=== PATIENT | female | born 1935 | race Caucasian/White ===

== ENCOUNTER → 2016-08-05 | Outpatient (CLI) | payer OTHER, MEDICARE ==
--- NOTE | 2016-08-05 14:27 | MAMMOGRAPHY REPORT ---
BILATERAL DIGITAL SCREENING MAMMOGRAM WITH CAD: 08/05/2016 CLINICAL HISTORY: Routine screening. Patient has no complaints. TECHNIQUE: Bilateral CC and MLO views were obtained. Current study was also evaluated with a Comput er Aided Detection (CAD) system. COMPARISON: Comparison is made to exams dated: 07/06/2015 mammogram, 02/23/2013 mammogram, 07/05/2014 mammogram, 12/09/2011 mammogram, and 12/04/2010 mammogram - [facility]. BREAST COMPOSITION: There are scattered areas of fibroglandular density in both breasts. FINDINGS: There are moderate vascular calcifications in the breasts, and a benign rim calcification anteriorly within the right breast. No suspicious mass, architectural distortion or cluster of susp icious microcalcifications is seen. IMPRESSION: ACR BI-RADS CATEGORY 1: NEGATIVE There is no mammographic evidence of malignancy. A 1 year screening mammogram is recommended. The p atient will receive written notification of the results. Approximately 10% of breast cancers are not detected with mammography. A negative mammographic repor t should not delay biopsy if a clinically suggestive mass is present. Brittany Moore M.D. ay/:08/05/2016 13:51:56 [employer] Manager: Kath VIEIRA(Jocelin)(Maricruz), [facility] letter sent: Normal 1/2 BI-RADS Code: ACR BI-RADS Category 1: Negative
== END | disposition home or self-care (01) ==
LOC: C.MAMM 13:35
PROVIDERS: ATTEND Obstetrics & Gynecology
DX: Z12.31 Encounter for screening mammogram for malignant neoplasm of breast (principal)

== ENCOUNTER → 2017-07-28 | Outpatient (CLI) | payer OTHER, MEDICARE ==
--- NOTE | 2017-07-28 15:46 | DIAGNOSTIC IMAGING REPORT ---
R LOWER EXT JOINT WITHOUT CLINICAL HISTORY: 81 years-old Female presenting with KNEE PAIN, injury 7 years ago, diagnosed with torn meniscus, no history of surgery, now with new pain but no new injury, arthritis. TECHNIQUE: Multisequence, multiplanar MR imaging of the right knee was performed without the use of intravenous contrast. IV contrast: None. COMPARISON: Plain radiographs from 07/23/2017. FINDINGS: Localizer images: Unremarkable. Bone marrow: Cystic change in the intercondylar notch of the tibial plateau as well as at the medial aspect of the lateral femoral condyle, degenerative in etiology. No bony edema. Articular cartilage: Articular cartilage thinning in the mid weightbearing portion of the medial femoral condyle and medial tibial plateau. Articular cartilage thinning of the medial patellar and trochlear facets. Osteophytosis noted in the medial compartment. Menisci: Horizontal type tear of the posterior horn body junction of the medial meniscus, which extends to the mid to anterior body. There is slight extrusion of the body of the medial meniscus. Meniscocapsular ligaments are not grossly disrupted. Degenerative change of the lateral meniscus without focal tear. Cruciate ligaments: Slight increased signal intensity of the anterior cruciate ligament suggests mucoid degeneration. The anterior and posterior cruciate ligaments remain intact. Collateral ligament: Medial collateral ligament intact. Lateral collateral ligament complex including the biceps femoris tendon, fibular collateral ligament, popliteal tendon, and iliotibial band intact. Quadriceps and patellar tendons: Quadriceps and patellar tendons intact. Knee joint effusion: Small joint effusion. Large parameniscal cysts along the medial meniscus body. No popliteal cyst. Subcutaneous edema in the infrapatellar region. Muscle: Normal muscle bulk and muscle signal intensity. IMPRESSION: 1. Degenerative changes of the medial compartment with articular cartilage thinning and osteophytosis. 2. 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 Large parameniscal cysts. 3. Mucoid degeneration of the ACL. 4. Small knee joint effusion. Electronically signed by: Dc Jackson M.D. 07/28/2017 3:45 PM Dictated Date/Time: 07/28/2017 3:37 PM
== END | disposition home or self-care (01) ==
LOC: C.MRIBC 14:38
PROVIDERS: ATTEND Orthopaedic Surgery
DX: M25.561 Pain in right knee (principal); R93.7 Abnormal findings on diagnostic imaging of other parts of musculoskeletal system; M23.006 Cystic meniscus, unspecified meniscus, right knee

== ENCOUNTER 2017-09-21 22:12 | Emergency (ER) | payer OTHER, MEDICARE ==
[~2017-09-21] VITALS: Ht 154.9 cm; Wt 69.9 kg
[2017-09-21 22:18] VITALS: TEMP 36.6; Ht 154.9 cm; Wt 69.9 kg
[2017-09-21] MEDS ORDERED: CEPHALEXIN MONOHYDRATE 250 MG CAP PO ONE (22:30)
--- NOTE | 2017-09-21 22:36 | EMERGENCY ROOM VISIT NOTE ---
History Report prepared by Sal: Papa hWite Under the Supervision of: Dr. Pipe Rios M.D. First contact with patient: 22:21 Chief Complaint: LACERATION/CUT (NON-SUTURE) Stated Complaint: CUT R HAND History of Present Illness The patient is a 82 year old female who presents to the Emergency Room due to a recent cut to her right hand. Patient states she fell down 1 step in the dark and does not know what caused the laceration. Patient states that she takes a baby aspirin daily. Patient denies taking Coumadin or Plavix. Patient believes that she is up to date on her tetanus shot. Patient states that she does not have a history of easy bleeding or infections. Patient adds that she is not diabetic. Source of History: patient Onset: Recent Position: hand (right) Quality: other (Laceration) Timing: constant Modifying Factors (Relieving): other (None) Review of Systems See HPI for pertinent positives & negatives. A total of 6 systems reviewed and were otherwise negative. Past Medical & Surgical Surgical Problems: (1) Hx of cholecystectomy Family History Diabetes mellitus FHx: cancer FHx: heart disease Social History Smokeless Tobacco Use: No Alcohol Use: none Occupation Status: retired Current/Historical Medications Scheduled Alendronate/Cholecalciferol (Fosamax+D 70MG/2800 Iu), 1 TABLET PO WK Aspirin (Aspirin Ec), 81 MG PO DAILY Atenolol (Tenormin), 25 MG PO DAILY Cephalexin Monohydrate (Keflex), 500 MG PO QID Levothyroxine Sodium (Levothyroxine Sodium), 112 MCG PO DAILY Omeprazole (Prilosec), 20 MG PO DAILY Simvastatin (Zocor), 20 MG PO QPM Allergies Coded Allergies: No Known Allergies (Unverified , 09/21/17) Physical Exam Vital Signs Date Time Temp Pulse Resp B/P (MAP) Pulse Ox O2 Delivery O2 Flow Rate FiO2 09/21/17 23:50 58 20 156/60 96 09/21/17 22:18 36.6 64 20 154/75 98 Room Air Physical Exam GENERAL: Patient is well appearing and in no acute distress.\ RESPIRATORY: No dyspnea. Clear to auscultation and equal bilaterally. No wheeze , no rhonchi. CARDIOVASCULAR: Regular rate and rhythm. No murmurs, rubs, gallops appreciated. GASTROINTESTINAL: Abdomen soft, nontender, no peritonitis. Bowel sounds positive. No masses appreciated. LACERATION: 4cm deep laceration vertical over palmar aspect of hand extending between 3rd and 4th digits and extending towards heal of hand; laceration is deep to flexor tendon of 3rd digit with mild venous oozing and no evidence of tendon laceration. Medical Decision & Procedures ER Provider Diagnostic Interpretation: Radiology results and stated below per my review and radiologist interpretation: RIGHT HAND 3 VIEWS HISTORY: fall with hand laceration- palmar between 3rd/4th digits COMPARISON: None. FINDINGS: The bones are osteopenic. No fracture or dislocation. Soft tissue gas at the base of the third finger and between the third and fourth MCP joints. This is consistent with a soft tissue laceration. Soft tissue swelling at the second and third MCP joints. No radiopaque foreign bodies. IMPRESSION: Soft tissue laceration within the right hand as described above. No fractures. Electronically signed by: Josiah Low M.D. 09/21/2017 10:57 PM Medications Administered Medications (Trade) Dose Ordered Sig/Marva Route Start Time Stop Time Status Last Admin Dose Admin Cephalexin Monohydrate (Keflex Cap) 500 mg NOW ONCE PO 09/21/17 22:30 09/21/17 22:31 DC 09/21/17 22:42 500 MG Cephalexin Monohydrate (Keflex 500MG Home Pack) 1 homepack NOW ONCE PO 09/21/17 23:30 09/21/17 23:31 DC 09/21/17 23:42 1 HOMEPACK Procedure Location: Right hand Total length: 4cm Complexity: complex Verbal consent was obtained after the risks and benefits were explained, including but not limited to bleeding, scarring, infection, pain, and bone/joint /nerve damage. At this time, the risks of the procedure are less than the risks of NOT performing the procedure. A time out was taken and the correct patient and site identified. The skin was prepped with betadine. The target area was anesthetized with 5 ml of 1% lidocaine without epinephrine. Copious irrigation was performed using betadine and normal saline. The skin was re-prepped with betadine and a sterile field set. The wound was explored for foreign bodies and none found. Examination revealed no injury to deep structures such as tendons, bone, or significant blood vessels. Debridement was not performed. The wound edges were approximated using 3 deep, 4-0 Vicryl sutures and 15, 4-0 simple interrupted nylon sutures. Hemostasis and excellent approximation was achieved. Antibacterial ointment and a sterile dressing applied. Detailed wound care instructions and signs and symptoms of infection reviewed with the her. No complications and the patient tolerated the procedure well. ED Course 2021: The patient was evaluated in room A9. A complete history and physical exam was performed. 2347: Reevaluated the patient. Discussed results and discharge instructions. She verbalized understanding and agreement. The patient is ready for discharge. Medical Decision 82 yr old female with complex laceration between 3rd and 4th digits right hand extending though web on to palm with visualization of tendon without evidence laceration tendon, nerve, artery. Required complex repair which patient tolerated well. Right handed and will start on abx. Reviewed wound care and monitoring. Discussed symptoms/findings requiring RTED. Tetanus believed UTD and she will check with PCP. Stable and looks well and comfortable with going home. Impression Primary Impression: Laceration of right palm Scribe Attestation The scribe's documentation has been prepared under my direction and personally reviewed by me in its entirety. I confirm that the note above accurately reflects all work, treatment, procedures, and medical decision making performed by me. Departure Information Dispostion Home / Self-Care Prescriptions Cephalexin Monohydrate (Keflex) 500 Mg Cap 500 MG PO QID for 5 Days, #20 CAP Prov: Pipe Rios M.D. 09/21/17 Referrals Melissa Gunn M.D. (PCP) Patient Instructions My [facility] Additional Instructions Sutures should be removed in 7 to 10 days. Return if signs of infection develop, including increased pain, swelling, drainage, rash, fevers, etc. Follow up with Primary Provider or Emergency Department for Suture Removal. Use Tylenol as needed for discomfort.
[2017-09-21] MEDS ORDERED: LIDOCAINE 1% BUFFERED INJ 5 ML VIAL INFIL ONE (22:45)
--- NOTE | 2017-09-21 22:58 | DIAGNOSTIC IMAGING REPORT ---
RIGHT HAND 3 VIEWS HISTORY: fall with hand laceration- palmar between 3rd/4th digits COMPARISON: None. FINDINGS: The bones are osteopenic. No fracture or dislocation. Soft tissue gas at the base of the third finger and between the third and fourth MCP joints. This is consistent with a soft tissue laceration. Soft tissue swelling at the second and third MCP joints. No radiopaque foreign bodies. IMPRESSION: Soft tissue laceration within the right hand as described above. No fractures. Electronically signed by: Josiah Low M.D. 09/21/2017 10:57 PM Dictated Date/Time: 09/21/2017 10:55 PM
[2017-09-21] MEDS ORDERED: ATEN-173 PO (23:00)
[2017-09-21] MEDS ORDERED: ASPI81TA28 PO (23:01)
[2017-09-21] MEDS ORDERED: FSMD/70 PO (23:01)
[2017-09-21] MEDS ORDERED: PRLSR20 PO (23:02)
[2017-09-21] MEDS ORDERED: SIMV20TA5 PO (23:02)
[2017-09-21] MEDS ORDERED: LEVO112T4 PO (23:12)
[2017-09-21] MEDS ORDERED: CEPHALEXIN 500MG HOME PACK 1 EA BTL PO ONE (23:30)
[2017-09-21] MEDS ORDERED: CEPH500C PO (23:34)
[2017-09-21 23:50] VITALS: BP 156/60; PULSE 58; O2SAT 96
== END 2017-09-21 23:51 | disposition home or self-care (01) ==
LOC: C.EDB 22:13 → C.EDA 23:51
DX: S61.411A Laceration without foreign body of right hand, initial encounter (principal); Z79.82 Long term (current) use of aspirin; W10.9XXA Fall (on) (from) unspecified stairs and steps, initial encounter

== ENCOUNTER 2024-01-28 15:38 | Inpatient (IN) ==
--- NOTE | 2024-01-28 15:45 | ED Triage Note ---
Date of Service January 28, 2024 Provider in Triage Author: Franki Medellin History of Present Illness This patient was briefly evaluated while in triage. An abbreviated physical exam was performed. This patient is a 88-year-old Female who presents to the ED for evaluation of diagnosed with COVID on 01/17 fatigue, weakness, anxious, diarrhea, headache, right rib pain denies CP/SOB took course of Paxlovid and prednisone, but not feeling any better. Physical Exam GENERAL: NAD CARDIOVASCULAR: RRR RESPIRATORY: CTA ABDOMEN: BS x 4. Nontender to palpation. Initial orders for labs and / or imaging were placed and patient was placed in the waiting area until a bed is available. Please see further documentation for the full ED course.
[2024-01-28 16:22] LABS: Basophils # (auto) 0.04 K/uL (0.00-0.20); Basophils % (auto) 0.4 %; Eosinophils # (auto) 0.05 K/uL (0.00-0.50); Eosinophils % (auto) 0.5 %; Hematocrit (blood only) 50.1 % (37.0-47.0); Hemoglobin 16.5 g/dl (12.0-16.0); Immature Granulocytes # (auto) 0.15 K/uL (0.01-0.20); Immature Granulocytes % (auto) 1.5 %; Lymphocytes # (auto) 2.06 K/uL (1.20-3.40); Lymphocytes % (auto) 20.8 %; Mean Corpuscular Hemoglobin 28.1 pg (25.0-34.0); Mean Corpuscular Hgb Conc 32.9 g/dL (32.0-36.0); Mean Corpuscular Volume 85.3 fL (80.0-100.0); Mean Platelet Volume 8.3 fL (9.4-12.4); Monocytes # (auto) 0.73 K/uL (0.11-0.59); Monocytes % (auto) 7.4 %; Neutrophils # (auto) 6.86 K/uL (1.40-6.50); Neutrophils % (auto) 69.4 %; Platelet Count 392 K/uL (130-400); RDW Coefficient of Variation 14.7 % (11.5-14.5); RDW Standard Deviation 45.4 fL (36.4-46.3); Red Blood Count 5.87 M/uL (4.20-5.40); White Blood Count 9.89 K/ul (4.8-10.8)
[2024-01-28 16:40] LABS: Albumin Globulin Ratio 1.4 (0.9-2); Albumin Level 3.9 gm/dl (3.4-5.0); BUN Creatinine Ratio 21.9 (10-20); Bilirubin,Total 0.6 mg/dl (0.2-1.0); Creatinine Clr Calc Pharmacy 26.5 ml/min; Est GFR (African American) 43.2 ml/min; Est GFR (Non-African American) 37.3 ml/min; Globulin 2.7 gm/dl (2.5-4.0); Potassium 4.5 mmol/L (3.5-5.1); Total Protein 6.6 gm/dl (6.0-8.3)
--- NOTE | 2024-01-28 17:10 | XRay Report ---
XR chest 1V not portable HISTORY: 88 years-old Female COVID COMPARISON: 01/18/24 TECHNIQUE: PA view of the chest FINDINGS: The cardiac silhouette is mildly enlarged. There is no pneumothorax, pleural effusion, airspace conso lidation or overt pulmonary edema. Bones of the chest appear grossly intact. Mild mid thoracic dextro scoliosis. IMPRESSION: No acute process. ACT 112: Negative or not required by law. The above report was generated using voice recognition software. It may contain grammatical, syntax o r spelling errors. Electronically signed by: Wilder Mendez M.D. 01/28/2024 5:08 PM
--- NOTE | 2024-01-28 19:24 | Emergency Department Note ---
Impression & Plan Acute dehydration, TEREZA (acute kidney injury), Generalized weakness, COVID-19 ED Provider Note NAME: CLARY TAYLOR AGE: 88 SEX: Female INFORMANT: Patient ED PROVIDER(S): Antonio Santos MD CHIEF COMPLAINT: Weakness PLAN: Disposition: Admitted Outpatient prescription management: none Referral: None MEDICAL DECISION MAKING: Patient presented after outpatient treatment of COVID-19. She is hemodynamically stable at this time. Workup revealed an unremarkable CBC except for hemoconcentration. Chemistry panel reveals dehydration with TEREZA. I suspect this is from the patient's decreased p.o. intake. Chest x-ray was negative. Vital signs are stable. Given the TEREZA and dehydration the patient was hydrated. Discussed further management in the hospital given her weakness and the fact that she lives alone. This time the patient is in agreement for inpatient treatment. [facility]. Patient was evaluated in the ER and admitted for further management Care/management discussed with: transport manager Level of care consideration(s): After review of the information above and other included data, I feel the patient requires escalation of care to admission Triage Nursing notes: reviewed and agree them. Vital Signs: reviewed and remarkable for no significant abnormalities Additional History obtained from: none Chronic Medical/Social Conditions affecting care: Hypothyroidism, hyperlipidemia, lives alone. Prior/ Outside/ External records reviewed: none Differential Diagnosis: Infection, dehydration, metabolic abnormality, hypo/hyperglycemia, electrolyte disturbance, anemia, hypoxia, cardiac sources, intracerebral event, toxicologic, neurologic, as well as other pathologies. Diagnostics, independently interpreted by me: ECG: Twelve-lead ECG reveals normal sinus rhythm at 77 beats per minute. No evidence of pericarditis, ischemia, ectopy, or dysrhythmia. Cardiac Monitoring: Cardiac monitoring ordered by me: The patient was placed on continuous cardiac monitoring and observed. It revealed a normal sinus rhythm at 78 beats per minute without ectopy or evidence of dysrhythmia. Medical decision rules: none Imaging studies: Chest x-ray. Findings: A chest x-ray was performed and revealed no pneumothorax, effusion, infiltrate, pulmonary edema, free air under the diaphragm, or wide mediastinum. Impression: No acute disease. HPI: 88 year old Female arrives for evaluation of weakness. Patient presented because of increased weakness. She wanted to go home after her last ER visit and diagnosis of COVID-19. She finished her Paxlovid. Patient has had decreased p.o. intake. She does have some mild headaches and cough. Patient also notes some anxiety. Patient rated her pain as a 3 out of 10. Because of the increased weakness and the fact the patient was not doing well at home she came to the ER for further evaluation. Pt denies LOC, fevers, chills, diaphoresis, visual changes, neck pain, chest pain, breathing difficulties, nausea, vomiting, abdominal pain, back pain, melena, hematochezia, urinary symptoms, numbness, lymphadenopathy, rash, or other complaints. PAST MEDICAL HISTORY: See Below, hyperlipidemia PAST SURGICAL HISTORY: See Below, SOCIAL HISTORY: See Below, lives alone HOME MEDICATIONS: See Below ALLERGIES: See Below VITALS: See Below PHYSICAL EXAMINATION: GENERAL: Awake, alert, well-appearing, in no distress HENT: Normocephalic, atraumatic. Oropharynx unremarkable except dry mucous membrane. EYES: Normal conjunctiva. Sclera non-icteric. NECK: Inspection normal. Non-tender. Supple. No nuchal rigidity. FROM. No masses. RESPIRATORY: Clear to auscultation. No wheezes. No rales. Normal respiratory effort. CARDIAC: Normal rate. Normal rhythm. No murmurs. No rubs. Extremities warm and well perfused. Pulses equal. No JVD. GI: Soft, non-distended. No tenderness to palpation. No rebound or guarding. No masses. RECTAL: Deferred. MUSCULOSKELETAL: Atraumatic. Chest examination reveals no tenderness. The back is symmetrical on inspection without obvious abnormality. There is no CVA tenderness to palpation. No joint edema. LOWER EXTREMITIES: Calves are equal size bilaterally and non-tender. No edema. No discoloration. NEURO: Normal sensorium. No sensory or motor deficits noted. SKIN: No rash or jaundice noted. PROCEDURES: none CRITICAL CARE: none OBSERVATION NOTE: none Past Med/Surg History Problem List COVID-19 (Acute) Generalized weakness (Acute) TEREZA (acute kidney injury) (Acute) Acute dehydration (Acute) Bronchospasm (Acute) Headache (Acute) Dehydration (Acute) COVID-19 (Acute) Left knee DJD COVID (Acute) Encounter for gynecological examination Peroneal tendonitis Skin irritation Ankle pain, right Left shoulder pain Knee pain, right Arthritis of knee, right HAYDEN (stress urinary incontinence, female) (Acute) Hypothyroid Routine gynecological examination Hyperlipidemia Osteoarthritis Other specified arthritis, right knee Hx of tubal ligation History of left salpingo-oophorectomy H/O oral surgery Hx of cholecystectomy Hx of cholecystectomy Medical History Hyperlipidemia Hypothyroid Osteoarthritis Other specified arthritis, right knee HAYDEN (stress urinary incontinence, female) Surgical History H/O oral surgery History of left salpingo-oophorectomy Hx of cholecystectomy Hx of tubal ligation Family History Mother , when she was young No problems noted. Father , does not know his history well, in 70s No problems noted. Denies family history of Ovarian cancer Breast cancer Colorectal cancer Social History Smoking Status: Never smoker Do You Dip or Chew Tobacco: No; Hx Alcohol Use: Yes Hx Substance Use: No Preferred Language: Danish Communication Ability: Effective marital status: Single current occupational status: retired current occupation: travels a lot Feels Safe at Home: Yes Diet: regular Allergies Allergies Allergy/AdvReac Type Severity Reaction Status Date / Time No Known Allergies Allergy Verified 01/18/24 16:17 Home Meds Home Medications Medication Instructions Recorded Confirmed omeprazole 20 mg capsule,delayed 20 mg PO DAILY PRN 12/30/18 01/18/24 release HEARTBURN/INDIGESTION aspirin 81 mg tablet,delayed 81 mg PO QAM 11/12/21 01/18/24 release atenolol 25 mg tablet 25 mg PO QAM 11/12/21 01/18/24 levothyroxine 75 mcg tablet 75 mcg PO QAM 11/12/21 01/18/24 amlodipine 2.5 mg tablet 2.5 mg PO QAM 01/18/24 01/18/24 escitalopram oxalate 5 mg tablet 5 mg PO QAM PRN Anxiety 01/18/24 01/18/24 rosuvastatin 10 mg tablet 10 mg PO DAILY 09/08/24 09/08/24 Previous Rx's Medication Instructions Recorded nirmatrelvir 300 mg (150 mg See Rx Instructions PO .COMPLEX 01/18/24 x2)-ritonavir 100 mg tablet,dose #30 ea pack (Paxlovid) Results & Data (ED) Vital Signs Vital Signs - 24 hr 01/28/24 15:42 Temperature 36.6 C Temperature Source Oral Pulse Rate 78 Respiratory Rate 20 Respiratory Effort / Characteristics Non-Labored Respiratory Depth Normal Blood Pressure 125/78 Blood Pressure Mean 93 Pulse Oximetry 95 Oxygen Delivery Method Room Air Sepsis Recent Fever Within 48 Hours No Sepsis New/Unexplained Change in Mental Status No Sepsis Action Taken by Nursing No Action Required Laboratory Data 01/28/24 16:04 01/28/24 16:04 Lab Results 01/28/24 Range/Units 16:04 WBC 9.89 (4.8-10.8) K/ul RBC 5.87 H (4.20-5.40) M/uL Hgb 16.5 H (12.0-16.0) g/dl Hct 50.1 H (37.0-47.0) % MCV 85.3 (80.0-100.0) fL MCH 28.1 (25.0-34.0) pg MCHC 32.9 (32.0-36.0) g/dL RDW Std Deviation 45.4 (36.4-46.3) fL RDW Coeff of Andre 14.7 H (11.5-14.5) % Plt Count 392 (130-400) K/uL MPV 8.3 L (9.4-12.4) fL Immature Gran % (Auto) 1.5 % Neut % (Auto) 69.4 % Lymph % (Auto) 20.8 % [place] % (Auto) 7.4 % Eos % (Auto) 0.5 % Baso % (Auto) 0.4 % Neut # (Auto) 6.86 H (1.40-6.50) K/uL Lymph # (Auto) 2.06 (1.20-3.40) K/uL [place] # (Auto) 0.73 H (0.11-0.59) K/uL Eos # (Auto) 0.05 (0.00-0.50) K/uL Baso # (Auto) 0.04 (0.00-0.20) K/uL Immature Gran # (Auto) 0.15 (0.01-0.20) K/uL Sodium 132 L (136-145) mmol/L Potassium 4.5 (3.5-5.1) mmol/L Chloride 101 (98-107) mmol/L Carbon Dioxide 21 (21-32) mmol/L Anion Gap 10 (3-11) BUN 28 H (6-23) mg/dl Creatinine 1.28 H (0.6-1.2) mg/dl Est Cr Clr Drug Dosing 26.5 ml/min Est GFR ( Amer) 43.2 ml/min Est GFR (Non-Af Amer) 37.3 ml/min BUN/Creatinine Ratio 21.9 H (10-20) Glucose 143 H (70-99(Fasting)) mg/dl Calcium 9.0 (8.6-10.3) mg/dl Total Bilirubin 0.6 (0.2-1.0) mg/dl AST 30 (13-39) U/L ALT 54 H (7-52) U/L Alkaline Phosphatase 40 (34-104) U/L Total Protein 6.6 (6.0-8.3) gm/dl Albumin 3.9 (3.4-5.0) gm/dl Globulin 2.7 (2.5-4.0) gm/dl Albumin/Globulin Ratio 1.4 (0.9-2) Imaging Data Radiologist's Impression: Chest X-Ray 01/28/24 15:45 XR chest 1V not portable HISTORY: 88 years-old Female COVID COMPARISON: 01/18/24 TECHNIQUE: PA view of the chest FINDINGS: The cardiac silhouette is mildly enlarged. There is no pneumothorax, pleural effusion, airspace consolidation or overt pulmonary edema. Bones of the chest appear grossly intact. Mild mid thoracic dextroscoliosis. IMPRESSION: No acute process. ACT 112: Negative or not required by law. The above report was generated using voice recognition software. It may contain grammatical, syntax or spelling errors. Electronically signed by: Wilder Mendez M.D. 01/28/2024 5:08 PM Discharge Plan Visit Data Chief Complaint: Illness Stated Complaint: WEAK, POS. COVID, DIARRHEA ED Provider: Antonio Santos Discharge Problem: Acute dehydration, TEREZA (acute kidney injury), Generalized weakness, COVID-19 Forms Stand Alone Forms: My [facility] Prescriptions Prescriptions: No Action omeprazole 20 mg capsule,delayed release(DR/EC) 20 mg PO DAILY PRN (Reason: HEARTBURN/INDIGESTION) atenolol 25 mg tablet 25 mg PO QAM aspirin 81 mg Tablet,Delayed Release (Dr/Ec) 81 mg PO QAM levothyroxine 75 mcg tablet 75 mcg PO QAM amlodipine 2.5 mg tablet 2.5 mg PO QAM rosuvastatin 10 mg tablet 10 mg PO DAILY escitalopram oxalate 5 mg tablet 5 mg PO QAM PRN (Reason: Anxiety) Rx Instructions: PT. ONLY TAKES PRN FOR ANXIETY Paxlovid 300 mg (150 mg x 2)-100 mg tablets,dose pack See Rx Instructions .ROUTE .COMPLEX Qty: 30 0RF Rx Instructions: take TWO 150 mg tablets of nirmatrelvir with ONE 100 mg tablet of ritonavir twice daily for 5 days Referrals Referrals: Melissa Gunn MD [Primary Care Provider] -
[2024-01-28] MEDS: SODIUM CHLORIDE 0.9% 500 ML IV ONE (19:33)
[2024-01-28] MEDS: SODIUM CHLORIDE 0.9% 1,000 ML IV SCH (19:33)
[2024-01-28 20:14] LABS: Appearance Urine Cloudy (Clear); Bacteria Urine Automated None Seen (None Seen); Bilirubin Urine Negative (Negative); Blood Urine Negative (Negative); Calcium Oxalate Crystals Urine Present (None Prsent); Color Urine Yellow; Glucose Urine UA Negative (Negative); Hyaline Casts Urine Present /lpf (None Presnt); Ketones Urine Trace (Negative); Leukocyte Esterase Urine 1+ (Negative); Nitrite Urine Negative (Negative); Protein Urine Trace (Negative); RBC Urine Automated >20 /hpf (0-2); Specific Gravity Urine 1.029 (1.000-1.030); Urobilinogen Urine Negative (Negative)
[2024-01-28 21:39] LABS: Influenza A virus by PCR Negative (Neg); Influenza B virus by PCR Negative (Neg); RSV by PCR Negative (Neg); SARS CoV2 RNA(COVID-19) Ceph POSITIVE (Negative)
[2024-01-28] MEDS: HEPARIN SOD 5,000 UNIT/0.5 ML VIAL SQ SCH (23:34)
[2024-01-28] MEDS: LACTATED RINGER'S 1,000 ML IV SCH (23:35)
--- NOTE | 2024-01-28 23:44 | History & Physical Report ---
Date of Service January 28, 2024 Assessment & Plan (1) Generalized weakness: Plan: 88-year-old female with past medical history significant for hypothyroidism, prediabetes, hyperlipidemia, mitral valve prolapse, hypertension, paroxysmal SVT, GERD, CKD stage III, depression, persistent insomnia who lives alone and who was recently about 10 days ago diagnosed with COVID and completed Paxlovid and prednisone comes because of weakness. Patient was having poor appetite. And she is somewhat shaky and anxious. Because of anxiety patient says she is having some abdominal discomfort. She still has some cough and bringing up whitish phlegm. No fevers. No nausea. No chest pain. No shortness of breath. She had couple of loose bowels today. Stools were dark. Micturating okay. Has headache thinks because of dehydration. Vision is okay. No runny nose currently. No sore throat currently. Feeling weak and not ambulating much.Hemodynamics are okay. Generalized weakness Recent COVID Mostly from poor oral intake IV fluids PT OT when stable TEREZA on CKD stage III Present creatinine 1.2 Baseline creatinine seems around 0.9-1 Getting fluids Follow repeat labs Hyponatremia Sodium 132 Getting fluids will follow labs Diarrhea couple of episodes stools dark will follow Hemoccult will monitor. Prediabetes Follow HbA1c levels Hypertension On amlodipine and atenolol History of PSVT On atenolol Hypothyroidism On Synthyroid Hyperlipidemia On statin GERD On omeprazole Depression On Lexapro DVT prophylaxis Heparin subcu Disposition Medical floor Full code. History of Present Illness Chief Complaint: Weakness and COVID Primary Care Provider: Melissa Gunn MD 88-year-old female with past medical history significant for hypothyroidism, prediabetes, hyperlipidemia, mitral valve prolapse, hypertension, paroxysmal SVT, GERD, CKD stage III, depression, persistent insomnia who lives alone and who was recently about 10 days ago diagnosed with COVID and completed Paxlovid and prednisone comes because of weakness. Patient was having poor appetite. And she is somewhat shaky and anxious. Because of anxiety patient says she is having some abdominal discomfort. She still has some cough and bringing up whitish phlegm. No fevers. No nausea. No chest pain. No shortness of breath. She had couple of loose bowels today. Stools were dark. Micturating okay. Has headache thinks because of dehydration. Vision is okay. No runny nose currently. No sore throat currently. Feeling weak and not ambulating much.Hemodynamics are okay. Past medical history. As mentioned above. Past surgical history. Cholecystectomy. Colonoscopy and EGD. Ligation of the duct. Removal of ovarian cyst. Bilateral cataracts. Social history. No smoking. Alcohol 1 beer a month. No drug use. Family history. Mother had blood cancer. Allergies Allergy/AdvReac Type Severity Reaction Status Date / Time No Known Allergies Allergy Verified 01/18/24 16:17 Home Medications Medication Instructions Recorded Confirmed Type B Complex 1 tab PO DAILY 01/28/24 01/28/24 History amlodipine 2.5 mg tablet 2.5 mg PO DAILY 01/28/24 01/28/24 History aspirin 81 mg tablet,delayed 81 mg PO DAILY 01/28/24 01/28/24 History release atenolol 25 mg tablet 25 mg PO DAILY 01/28/24 01/28/24 History cholecalciferol (vitamin D3) 25 25 mcg PO DAILY 01/28/24 01/28/24 History mcg (1,000 unit) tablet (Vitamin D3) escitalopram oxalate 5 mg tablet 5 mg PO DAILY 01/28/24 01/28/24 History levothyroxine 75 mcg tablet 75 mcg PO DAILY 01/28/24 01/28/24 History omeprazole 20 mg capsule,delayed 20 mg PO DAILY 01/28/24 01/28/24 History release rosuvastatin 10 mg tablet 10 mg PO DAILY 01/28/24 01/28/24 History Past Med/Surg History Problem List COVID-19 (Acute) Generalized weakness (Acute) TEREZA (acute kidney injury) (Acute) Acute dehydration (Acute) Bronchospasm (Acute) Headache (Acute) Dehydration (Acute) COVID-19 (Acute) Left knee DJD COVID (Acute) Encounter for gynecological examination Peroneal tendonitis Skin irritation Ankle pain, right Left shoulder pain Knee pain, right Arthritis of knee, right HAYDEN (stress urinary incontinence, female) (Acute) Hypothyroid Routine gynecological examination Hyperlipidemia Osteoarthritis Other specified arthritis, right knee Hx of tubal ligation History of left salpingo-oophorectomy H/O oral surgery Hx of cholecystectomy Hx of cholecystectomy Medical History Hyperlipidemia Hypothyroid Osteoarthritis Other specified arthritis, right knee HAYDEN (stress urinary incontinence, female) Surgical History H/O oral surgery History of left salpingo-oophorectomy Hx of cholecystectomy Hx of tubal ligation Family History Mother , when she was young No problems noted. Father , does not know his history well, in 70s No problems noted. Denies family history of Ovarian cancer Breast cancer Colorectal cancer Social History Smoking Status: Never smoker Do You Dip or Chew Tobacco: No; Hx Alcohol Use: Yes Alcohol type: beer Hx Substance Use: No Preferred Language: Georgian Communication Ability: Effective International Marketing Specialist Required: No Beliefs That Will Affect Care: None marital status: Single Current Living Situation: Alone current occupational status: retired current occupation: travels a lot Other Information That Helps Us Care for You: No Feels Safe at Home: No Is there a partner from a previous relationship who is making you feel unsafe now?: No Any Concerns about Your Family Situation: No Would You Like to Speak to Someone About Your Situation: No Safety Concerns: Feels Safe At This Time Diet: regular Assistive Devices: None Review of Systems Review of Systems: All systems reviewed & are unremarkable except as noted in HPI & below Physical Exam Physical Exam: General- Not in acute distress Head- atraumatic Eyes- PERRL. ENT- oropharynx clear Neck- supple, no JVD. Lungs- clear to auscultation no wheezing or crackles Heart- regular rate and rhythm; no murmur, no gallop. Abdomen- normal bowel sounds, soft, nontender, no distension. Extremities- no pretibial edema, no erythema seen Neuro- alert, oriented ; PERRL, no facial palsy; no dysarthria; moves extremities Results & Data Results & Data Vital Signs (Past 12 Hours) Vital Signs Temp Pulse Pulse Resp BP BP Pulse Ox 01/28/24 19:31 66 01/28/24 19:31 66 22 96 01/28/24 19:31 66 19 151/71 H 97 01/28/24 15:42 36.6 C 78 20 125/78 95 O2 Del Method 01/28/24 19:31 01/28/24 19:31 Room Air 01/28/24 19:31 Room Air 01/28/24 15:42 Room Air Diagnostic Findings Laboratory Results WBC 9.89 K/ul (4.8-10.8) 01/28/24 16:04 RBC 5.87 M/uL (4.20-5.40) H 01/28/24 16:04 Hgb 16.5 g/dl (12.0-16.0) H 01/28/24 16:04 Hct 50.1 % (37.0-47.0) H 01/28/24 16:04 MCV 85.3 fL (80.0-100.0) 01/28/24 16:04 MCH 28.1 pg (25.0-34.0) 01/28/24 16:04 MCHC 32.9 g/dL (32.0-36.0) 01/28/24 16:04 RDW Std Deviation 45.4 fL (36.4-46.3) 01/28/24 16:04 RDW Coeff of Andre 14.7 % (11.5-14.5) H 01/28/24 16:04 Plt Count 392 K/uL (130-400) 01/28/24 16:04 MPV 8.3 fL (9.4-12.4) L 01/28/24 16:04 Immature Gran % (Auto) 1.5 % 01/28/24 16:04 Neut % (Auto) 69.4 % 01/28/24 16:04 Lymph % (Auto) 20.8 % 01/28/24 16:04 [place] % (Auto) 7.4 % 01/28/24 16:04 Eos % (Auto) 0.5 % 01/28/24 16:04 Baso % (Auto) 0.4 % 01/28/24 16:04 Neut # (Auto) 6.86 K/uL (1.40-6.50) H 01/28/24 16:04 Lymph # (Auto) 2.06 K/uL (1.20-3.40) 01/28/24 16:04 [place] # (Auto) 0.73 K/uL (0.11-0.59) H 01/28/24 16:04 Eos # (Auto) 0.05 K/uL (0.00-0.50) 01/28/24 16:04 Baso # (Auto) 0.04 K/uL (0.00-0.20) 01/28/24 16:04 Immature Gran # (Auto) 0.15 K/uL (0.01-0.20) 01/28/24 16:04 Sodium 132 mmol/L (136-145) L 01/28/24 16:04 Potassium 4.5 mmol/L (3.5-5.1) 01/28/24 16:04 Chloride 101 mmol/L (98-107) 01/28/24 16:04 Carbon Dioxide 21 mmol/L (21-32) 01/28/24 16:04 Anion Gap 10 (3-11) 01/28/24 16:04 BUN 28 mg/dl (6-23) H 01/28/24 16:04 Creatinine 1.28 mg/dl (0.6-1.2) H 01/28/24 16:04 Est Cr Clr Drug Dosing 26.5 ml/min 01/28/24 16:04 Est GFR ( Amer) 43.2 ml/min 01/28/24 16:04 Est GFR (Non-Af Amer) 37.3 ml/min 01/28/24 16:04 BUN/Creatinine Ratio 21.9 (10-20) H 01/28/24 16:04 Glucose 143 mg/dl (70-99(Fasting)) H 01/28/24 16:04 Calcium 9.0 mg/dl (8.6-10.3) 01/28/24 16:04 Total Bilirubin 0.6 mg/dl (0.2-1.0) 01/28/24 16:04 AST 30 U/L (13-39) 01/28/24 16:04 ALT 54 U/L (7-52) H 01/28/24 16:04 Alkaline Phosphatase 40 U/L (34-104) 01/28/24 16:04 Total Protein 6.6 gm/dl (6.0-8.3) 01/28/24 16:04 Albumin 3.9 gm/dl (3.4-5.0) 01/28/24 16:04 Globulin 2.7 gm/dl (2.5-4.0) 01/28/24 16:04 Albumin/Globulin Ratio 1.4 (0.9-2) 01/28/24 16:04 Urine Color Yellow 01/28/24 19:37 Urine Appearance Cloudy (Clear) A 01/28/24 19:37 Urine pH 5.0 (4.5-7.5) 01/28/24 19:37 Ur Specific [place] 1.029 (1.000-1.030) 01/28/24 19:37 Urine Protein Trace (Negative) H 01/28/24 19:37 Urine Glucose (UA) Negative (Negative) 01/28/24 19:37 Urine Ketones Trace (Negative) H 01/28/24 19:37 Urine Blood Negative (Negative) 01/28/24 19:37 Urine Nitrite Negative (Negative) 01/28/24 19:37 Urine Bilirubin Negative (Negative) 01/28/24 19:37 Urine Urobilinogen Negative (Negative) 01/28/24 19:37 Ur Leukocyte Esterase 1+ (Negative) H 01/28/24 19:37 Urine WBC (Auto) 6-10 /hpf (0-5) H 01/28/24 19:37 Urine RBC (Auto) >20 /hpf (0-2) H 01/28/24 19:37 U Hyaline Cast (Auto) 6-10 /lpf (0-2) H 01/28/24 19:37 U Epithel Cells (Auto) 3-5 /hpf (0-2) H 01/28/24 19:37 Urine Bacteria (Auto) None Seen (None Seen) 01/28/24 19:37 Calcium Oxalate Crystal Present (None Prsent) A 01/28/24 19:37 Hyaline Casts Present /lpf (None Presnt) A 01/28/24 19:37 SARS-CoV-2 (PCR) POSITIVE (Negative) A 01/28/24 20:35 Influenza Type A (PCR) Negative (Neg) 01/28/24 20:35 Influenza Type B (PCR) Negative (Neg) 01/28/24 20:35 RSV (RT-PCR) Negative (Neg) 01/28/24 20:35 Impressions Chest X-Ray 01/28/24 15:45 XR chest 1V not portable HISTORY: 88 years-old Female COVID COMPARISON: 01/18/24 TECHNIQUE: PA view of the chest FINDINGS: The cardiac silhouette is mildly enlarged. There is no pneumothorax, pleural effusion, airspace consolidation or overt pulmonary edema. Bones of the chest appear grossly intact. Mild mid thoracic dextroscoliosis. IMPRESSION: No acute process. ACT 112: Negative or not required by law. The above report was generated using voice recognition software. It may contain grammatical, syntax or spelling errors. Electronically signed by: Wilder Mendez M.D. 01/28/2024 5:08 PM ECG Additional Comments: ECG. Normal sinus rhythm with rate of 77. Nonspecific ST abnormality. QTc 407. Code Status & VTE Plan VTE Prophylaxis Plan VTE Prophylaxis will be ordered: Yes
[2024-01-28 23:54] VITALS: RESP 16
[2024-01-28] MEDS: ACETAMINOPHEN 325 MG TAB PO PRN (23:55)
[2024-01-29] MEDS: LEVOTHYROXINE SODIUM 75 MCG TABLET PO SCH (05:32)
--- NOTE | 2024-01-29 06:46 | Electrocardiogram Report ---
Test Reason : Blood Pressure : */* mmHG Vent. Rate : 77 BPM Atrial Rate : 77 BPM P-R Int : 150 ms QRS Dur : 64 ms QT Int : 360 ms P-R-T Axes : 72 33 8 degrees QTcB Int : 407 ms Normal sinus rhythm Nonspecific ST abnormality Abnormal ECG When compared with ECG of 18-Jan-2024 13:13, Nonspecific T wave abnormality no longer evident in Anterior leads Confirmed by Yoav David ([id number]) on 01/29/2024 6:46:34 AM Referred By: Confirmed By: Yoav David
[2024-01-29 07:24] LABS: Estimated Average Glucose 128 mg/dl; Hemoglobin A1C 6.1 % (4.5-5.6)
--- OUTSIDE RECORDS SUMMARY | 2024-01-29 07:54 | External Medical Summary | Summary of Care ---
Author Name Unknown Organization [facility] Address [address] [place] [address] Phone [phone] Care Team Providers Care Complaint Manager Name Role Phone Melissa Gunn MD Primary Care Provider + Encounter Details Date Type Department Care Team (Late st Contact Info) Description 01/27/2024 Orders Only PATIENT PORTAL DO NOT DELETE THIS DEPT USED BY CRISTINA INFANTE [id number] Allergies Active Allergy Reactions Criticality Noted Date Comments No Known Drug Allergy 04/05/2002 Pollen 09/05/2020 documented as of this encounter (statuses as of 01/27/2024) Medications Medication Sig Dispensed Refills Start Date End Date Status ASPIRIN EC LOW STRENGTH 81 MG PO TBECIndications:Palp itations,Mitral valve prolapse take one tablet daily 34 11 02/06/2005 Active B Complex Vitamins (VITAMIN B COMPLEX) Tablet Take 1 Tablet by mouth daily at noon. Active Cholecalciferol (VITAMIN D-3) 25 MCG (1000 UT) Capsule Take 1 Capsule by mouth in the morning. Active Calcium Carb-Cholecalciferol 600-800 MG-UNIT Oral Tablet Take 1 Tablet by mouth daily at noon. Active Multiple Vitamins-Minerals (CENTRUM SILVER ULTRA WOMENS) Tablet Take 1 Tablet by mouth daily at noon. Active Zolpidem Tartrate 5 MG Oral Tablet (Ambien) once nightly as needed 30 Tab 1 10/10/2020 Active Atenolol 25 MG Oral Tablet (Tenormin)Indication s:Palpitations TAKE 1 TABLET BY MOUTH DAILY 90 Tablet 3 04/29/2023 Active Omeprazole 20 MG Oral Capsule Delayed Release (PriLOSEC)Indication s:GERD (gastroesophageal reflux disease) TAKE 1 CAPSULE BY MOUTH DAILY 90 Capsule 1 05/06/2023 Active Rosuvastatin Calcium 10 MG Oral Tablet (Crestor)Indications :Mixed dyslipidemia Take 1 Tablet by mouth in the morning. 90 Tablet 3 05/14/2023 Active amLODIPine Besylate 2.5 MG Oral Tablet (Norvasc)Indications :HTN, goal below 130/80,Palpitations Take 0.5 Tablets by mouth in the morning. 07/09/2023 Active Escitalopram Oxalate 5 MG Oral Tablet (Lexapro) Take 1 Tablet by mouth in the morning. 30 Tablet 3 01/13/2024 Active Additional Information Patient not taking.Reported on 01/23/2024 Paxlovid (300/100) 20 x 150 MG & 10 x 100MG Tablet Therapy Pack TAKE 2 TABLETS (NIRMATRELVIR) AND TAKE 1 TABLET (RITONAVIR) BY MOUTH TWICE A DAY FOR 5 DAYS 01/18/2024 Active predniSONE 20 MG Oral Tablet (Deltasone)Indicatio ns:COVID-19 virus infection,Headache, unspecified headache type Take 1 Tablet by mouth in the morning. X 3 day and finish rx. 1 Tablet 01/23/2024 Active Levothyroxine Sodium 75 MCG Oral Tablet (Levoxyl)Indications :Acquired hypothyroidism TAKE 1 TABLET BY MOUTH DAILY AT LEAST 30 MINUTES PRIOR TO BREAKFAST OR OTHER MEDS FRIDAY TO FRIDAY, AND SKIP ON SUNDAYS 7 Tablet 01/26/2024 Active documented as of this encounter (statuses as of 01/27/2024) Active Problems Problem Noted Date Diagnosed Date Persistent insomnia 11/07/2023 Overweight (BMI 25.0-29.9) 11/07/2023 Current moderate episode of major depressive disorder without prior episode 06/12/2023 Paroxysmal SVT (supraventricular tachycardia) Chronic kidney disease, stage 3a 09/19/2020 Overview: Per CKD protocol Gastroesophageal reflux disease without esophagi tis 06/11/2019 Prediabetes 06/24/2017 Overview: Per Prediabetes protocol #1 Acquired hypothyroidism 02/09/2015 Mitral valve prolapse 04/05/2002 Hyperlipidemia with target LDL less than 100 HTN, goal below 140/90 documented as of this encounter (statuses as of 01/27/2024) Resolved Problems Problem Noted Date Diagnosed Date Resolved Date Hypertensive kidney disease with stage 3a chronic kidney disease 04/24/2020 11/07/2023 Overview: Per CKD protocol Hypertensive kidney disease with chronic kidney disease stage III 06/11/2019 04/27/2020 Overview: Per CKD protocol Kidney disease, chronic, sta ge III (GFR 30-59 ml/min) 07/05/2013 06/23/2019 Overview: Per CKD protocol #1 HYPOTHYROIDISM NOS 07/13/2009 5 Palpitations 04/05/2002 11/07/2023 Hyperlipidemia LDL goal <130 06/11/2019 HTN, goal below 130/80 11/06 documented as of this encounter (statuses as of 01/27/2024) Immunizations Name Administration Dates Next Due COVID-19 mRNA, LNP-s, No Pre serve, 2-Dose Series (Mantis Deposition) 03/02/2021,08/01/2020,07/11/2020 Diptheria/Tetanus Adult (TD) 08/29/2009 Pneumococcal Conjugate Vacc, 13 Valent (Prevnar) 02/07/2015 Pneumococcal Polysaccharide PPV23 (Pneumovax) 08/29/2009 Season Influenza, Quad, PF, Adjuvanted, 65+ Yrs, IM (FLUAD) 03/24/2020 Seasonal Influenza Virus Vac cine, Unspecified Formulation 01/25/2021,03/24/2020,02/25/2019,03/11,04/10/2017,03/04/2016,02/26/2011 ,03/12/2007,02/25/2006 Seasonal Influenza, PF, 6 M & above, IM , (FluLaval or Fluzone) 03/11/2018,04/10/2017 Seasonal Influenza, Quadriva lent Hd (Fluzone Hd) 05/14/2023,02/11/2022,01/25/2021 Seasonal Influenza, Quadriva lent, No Preserve, IM 03/04/2016,02/07/2015 Seasonal Influenza, Trivalen t, (IIV3), with Preserv, (Fluzone) 02/21/2014,05/21/2012,02/26/2011,03/12,02/25/2006 Seasonal Influenza, Trivalen t, Adjuvanted, 65+ YRS, PF, (Fluad) 02/25/2019 TD, Preservative Free 08/29/2009 TDAP, Age 7 and older, IM (Adacel) 04/25/2020 Varicella Zoster Vaccine (Adult) 12/05/2015 Zoster Vaccine Recombinant (Shingrix) 04/18/2020 ,01/13/2020 documented as of this encounter Social History Tobacco Use Types Packs/Day Years Used Date Smoking Tobacco: Never Smokeless Tobacco: Never Alcohol Use Standard Drinks/Week Comments Yes 0.8 (1 standard drink = 0.6 oz p ure alcohol) one beer a month AUDIT-C Answer Date Recorded Q1: How often do you have a drink containing alc ohol? Monthly or less 09/05/2020 Q2: How many drinks containi ng alcohol do you have on a typical day when you are drinking? 1 or 2 09/05/2020 Q3: How often do you have si x or more drinks on one occasion? Not asked 09/05/2020 PHQ-2 Answer Date Recorded PHQ Adult Total Score 1 08/19/2023 Hunger Vital Sign Answer Date Recorded Within the past 12 months, y ou worried that your food would run out before you got the money to buy more. Never true 08/19/19 24 Within the past 12 months, t he food you bought just didn't last and you didn't have money to get more. Never true 08/19/2023 Childcare Answer Date Recorded Do you feel overwhelmed with taking care of a child, family member or friend? No 08/19/2023 Does your family need help f inding childcare? (Household - for ages 0-17 years) Not on file 08/19/2023 Clothing Answer Date Recorded Have you been unable to get clothing when it was really needed? No 08/19/2023 Is your family able to get c lothes or diapers when needed? (Household - for ages 0-17 years) Not on file 08/19/2023 Personal Safety Answer Date Recorded Do you feel unsafe or have concerns for your saf ety? No 08/19/2023 Do you have concerns for you r family's safety? (Household - for ages 0-17 years) Not on file 08/19/2023 Utilities Answer Date Recorded Do you have trouble paying y our heating, water, or electric bill? No 08/19/2023 Is your family able to pay t he heat, water, or electric bill? (Household - for ages 0-17 years) Not on file 08/19/2023 Does your family have access to good internet? (Household - for ages 0-17 years) Not on file 08/19/2023 Employment Status Answer Date Recorded Are you unemployed or without regular income? No 08/19/2023 Does the household have a re gular source of income? (Household - for ages 0-17 years) Not on file 08/19/2023 Social Connections Answer Date Recorded How often do you feel lonely or isolated from th ose around you? Never 08/19/2023 Financial Resource Strain Answer Date R ecorded Do you have any trouble payi ng for your medications, or do you think you might in the future? No 08/19/2023 Does your family have troubl e paying for medicine? (Household - for ages 0-17 years) Not on file 08/19/2023 Transportation Needs Answer Date Record ed READ ONLY Do you have troubl e getting a ride to medical visits or work? Never True 08/19/2023 Does your family have a hard time getting a ride to doctors visits? (Household - for ages 0-17 years) Not on file 08/19/2023 Has lack of transportation k ept you from medical appointments, meetings, work, or from getting things needed for daily living? Check all that apply. (Adult - for ages 18 years and over) Not on file 08/19/2023 Do you (or your family) have trouble finding or paying for a ride (transportation)? (Household - for ages 0-17 years) Not on file 08/19/2023 Housing Stability Answer Date Recorded Do you currently live in a s helter or have no steady place to sleep at night? No 08/19/2023 READ ONLY Do you think you a re at risk of becoming homeless? No 08/19/2023 Does your family worry about paying for your home or becoming homeless? (Household - for ages 0-17 years) Not on file 0 08/19/2023 Are you homeless or worried that you might be in the future? (Adult - for ages 18 years and over) Not on file Are you (or your family) maryann eless or worried that you might be in the future? (Household - for ages 0-17 years) Not on file Food Insecurity Answer Date Recorded Do you need food for this week? No 08/19/2023 Are you able to get enough f ood for your family? (Household - for ages 0-17 years) Not on file 08/19/2023 Does your family need food t his week? (Household - for ages 0-17 years) Not on file 08/19/2023 Do you always have enough fo od for your family? (Household - for ages 0-17 years) Not on file 08/19/2023 Sex and Gender Information Value Date Recorded Sex Assigned at Female 07/16/2019 12:21 PM EST Gender Identity Female 07/16/2019 12:21 PM EST Sexual Orientation Straight 07/16/2019 12 :21 PM EST Job Start Date Occupation Industry Not on file Not on file Not on file documented as of this encounter Plan of Treatment Upcoming Encounters Date Type Department Care Team (Late st Contact Info) Description 06/22/2024 3:40 PM EST Office Visit General Internal Medicine [facility] [place] [address] [place] [id number] Melissa Gunn MD [address] [place] [id number] 08/26/2024 1:00 PM EDT Nurse Only Ancillary [facility] [place] [address] [place] [id number] Hetal, Nurse Annual Wellness [facility] [address] [place] [id number] 11/05/2024 12:45 PM EDT Office Visit Dermatology [facility] [place] [address] [place] [id number] William Rios MD [address] [place] [id number] Health Maintenance Due Date Last Done Comments COVID-19 Vaccine ( season) 2024 03/02/2021, 08/01/2020, 07/11/2020 Influenza Vaccine (FLU shot) (#1) 2024 05/14/2023, 02/11/2022, 01/25/2021, Additional history exists Adult Wellness Visit 08/18/2024 08/19/2023, 09/06/2021, 09/05/2020 Depression Monitoring 08/18/2024 08/19/2023 Albumin/Creatinine Ratio 10/28/2024 024, 06/12/2022, 08/06/2021, Additional history exists CKD HGB USE SMARTSET 73279 10/28/202410/28, 10/29/2023, 05/30/2022, Additional history exists CKD PHOS USE SMARTSET 26262 10/28/202410/10, 08/06/2021, 12/23/2016, Additional history exists HbA1c 10/28/2024 10/29/2023, 02/0 05/2022, 08/06/2021, Additional history exists TSH 10/28/2024 10/29/2023, 10/12, 05/30/2022, Additional history exists DTap/Tdap Vaccines (2 - Td or Tdap) 04/25/2030 04/25/2020, 08/29/2009, 08/29/2009 Pneumococcal Vaccine: 65+ Years Completed 02/07/2015, 08/29/2009 Colonoscopy Discontinued 05/29/2016, 05/29/2016 Zoster Vaccines Completed 04/18/2020, 07/2019, 12/05/2015 HPV (Gardasil) Vaccine Aged Out No lo nger eligible based on patient's age to complete this topic Hepatitis B Vaccine Aged Out No longe r eligible based on patient's age to complete this topic MENINGOCOCCAL (MENACTRA/MENVEO) Aged Out No longer eligible based on patient's age to complete this topic documented as of this encounter Medical Devices Implanted Type Area English Adjunct Faculty Device Identifier Shelf Expiration Date Model / Serial / Lot Lens Intraoc 19.0 - [id number] - [id number] Implanted:Qty: 1 on 11/04/2019 by Austin Cordero MD at [facility] Left: Eye [employer] 04/10/2024 [id number] / [id number] / [id number] Lens Intraoc 16.0 - [id number] - [id number] Implanted:Qty: 1 on 11/16/2019 by Austin Cordero MD at OR [facility] Right: Eye [employer] 04/10/2024 [id number] / [id number] / [id number] documented as of this encounter Care Teams Complaint Manager Relationship Specialty Start Date End Date Melissa Gunn MD [address] [place] [address], [place] [id number] PCP - General Internal Medicine 06/02/15 documented as of this encounter
--- OUTSIDE RECORDS SUMMARY | 2024-01-29 07:55 | External Medical Summary | Summary of Care ---
Author Name Unknown Organization [facility] Address [address] [place] [address] Phone [phone] Care Team Providers Care Inspector Golf Ball Name Role Phone Melissa Gunn MD Primary Care Provider + Reason for Visit * Reason Comments Acute Patient c/o shakines s, bad headaches, overall not feeling well post COVID. Patient was given course of Paxlovid and prednisone at hospital on Friday and has 2.5 doses of Paxlovid left and one dose of prednisone left. Originally tested positive on Friday. Encounter Details Date Type Department Care Team (Late st Contact Info) Description 01/23/2024 2:00 PM EDT Office Visit General Internal Medicine [address] [place] [address] Herminia Altamirano MD [address] [place] [address] COVID-19 virus infection*; Headache, unspecified headache type; Hyponatremia; Shakiness Allergies Active Allergy Reactions Criticality Noted Date Comments No Known Drug Allergy 04/05/2002 Pollen 09/05/2020 documented as of this encounter (statuses as of 01/23/2024) Medications Medication Sig Dispensed Refills Start Date End Date Status ASPIRIN EC LOW STRENGTH 81 MG PO TBECIndications:Pal pitations,Mitral valve prolapse take one tablet daily 34 11 5 Active B Complex Vitamins (VITAMIN B COMPLEX) Tablet Take 1 Tablet by mouth daily at noon. Active Cholecalciferol (VITAMIN D-3) 25 MCG (1000 UT) Capsule Take 1 Capsule by mouth in the morning. Active Calcium Carb-Cholecalcifero l 600-800 MG-UNIT Oral Tablet Take 1 Tablet by mouth daily at noon. Active Multiple Vitamins-Minerals (CENTRUM SILVER ULTRA WOMENS) Tablet Take 1 Tablet by mouth daily at noon. Active Zolpidem Tartrate 5 MG Oral Tablet (Ambien) once nightly as needed 30 Tab 1 1 Active Atenolol 25 MG Oral Tablet (Tenormin)Indicatio ns:Palpitations TAKE 1 TABLET BY MOUTH DAILY 90 Tablet 3 3 Active Omeprazole 20 MG Oral Capsule Delayed Release (PriLOSEC)Indicatio ns:GERD (gastroesophageal reflux disease) TAKE 1 CAPSULE BY MOUTH DAILY 90 Capsule 1 3 Active Rosuvastatin Calcium 10 MG Oral Tablet (Crestor)Indication s:Mixed dyslipidemia Take 1 Tablet by mouth in the morning. 90 Tablet 3 4 Active amLODIPine Besylate 2.5 MG Oral Tablet (Norvasc)Indication s:HTN, goal below 130/80,Palpitations Take 0.5 Tablets by mouth in the morning. 4 Active Levothyroxine Sodium 75 MCG Oral Tablet (Levoxyl)Indication s:Acquired hypothyroidism TAKE 1 TABLET BY MOUTH DAILY AT LEAST 30 MINUTES PRIOR TO BREAKFAST OR OTHER MEDS FRIDAY TO FRIDAY, AND SKIP ON SUNDAYS 78 Tablet 1 4 Active Escitalopram Oxalate 5 MG Oral Tablet (Lexapro) Take 1 Tablet by mouth in the morning. 30 Tablet 3 4 Active Additional Information Patient not taking.Reported on 01/23/2024 Paxlovid (300/100) 20 x 150 MG & 10 x 100MG Tablet Therapy Pack TAKE 2 TABLETS (NIRMATRELVIR) AND TAKE 1 TABLET (RITONAVIR) BY MOUTH TWICE A DAY FOR 5 DAYS 4 Active predniSONE 20 MG Oral Tablet (Deltasone)Indicati ons:COVID-19 virus infection,Headache, unspecified headache type Take 1 Tablet by mouth in the morning. X 3 day and finish rx. 1 Tablet 4 Active predniSONE 20 MG Oral Tablet (Deltasone) TAKE 3 TABLETS BY MOUTH ONCE DAILY FOR 4 DAYS 09/08/01/23/20 24 Discontinued documented as of this encounter (statuses as of 01/23/2024) Active Problems Problem Noted Date Diagnosed Date [...] as of this encounter (statuses as of 01/23/2024) Resolved Problems Problem Noted Date Diagnosed Date [...] as of this encounter (statuses as of 01/23/2024) Immunizations Name Administration Dates Next Due COVID-19 mRNA, LNP-s, No Pre serve, 2-Dose Series ([employer]) 03/02/2021,08/01/2020,07/11/2020 Diptheria/Tetanus Adult (TD) 08/29/2009 Pneumococcal Conjugate [...] on file documented as of this encounter Last Filed Vital Signs Vital Sign Reading Time Taken Comments Blood Pressure 122/68 01/23/2024 2:16 PM EDT Pulse 53 01/23/2024 2:16 PM EDT Temperature 36.3 C (97.3 F) 01/23/2024 2:16 PM ED T Respiratory Rate - - Oxygen Saturation 97% 01/23/2024 2:16 PM EDT Inhaled Oxygen Concentration - - Weight 64.9 kg (143 lb) 01/23/2024 2:16 PM EDT Height - - Body Mass Index 27.7 10/29/2023 10:15 AM EDT documented in this encounter Progress Notes * Herminia Altamirano MD - 01/23/2024 2:23 PM EDT SUBJECTIVE: Yariel Velez is a 88 year old female. Chief Complaint Patient presents with Acute Patient c/o shakiness, bad headaches, overall not feeling well post COVID. Patient was given courseof Paxlovid and prednisone at hospital on Friday and has 2.5 doses of Paxlovid left and one dose ofprednisone left. Originally tested positive on Friday. HPI: Patient presents today for ER follow-up from 01/18/2024, seen for symptoms of headache, fever, nausea, fatigue, cough after a bus trip. Workup-normal CBC, BMP except sodium 132, normal LFT, magnesium, negative troponin, normal lipase, UA with ketones, respiratory pathogen panel positive for COVID-19, chest x-ray was negative. [place] she had some wheezing, was given IV fluids, Tylenol, Decadron in the ER and discharged on prednisone 60 mg daily for 4 days, albuterol inhaler as needed, Paxlovid and nasal spray. States she did not start the medications until Friday, feels jittery and anxious likely due to theprednisone and receiving Decadron in the ER, has a headache, took Tylenol 1 tablet without much relief. Minimal diarrhea. No runny nose sore throat wheezing chest pain or shortness of breath Last cmp nml October Hemoglobin AIC Results: Lab Results Component Value Date/Time HEMOGLOBIN A1C - [facility] 5.8 (H) 10/29/2023 10:54 AM HEMOGLOBIN A1C - [facility] 6.0 (H) 06/12/2022 04:30 PM HEMOGLOBIN A1C - [facility] 6.0 (H) 08/06/2021 11:08 AM HEMOGLOBIN A1C - [facility] 5.9 (H) 03/27/2020 11:07 AM HEMOGLOBIN A1C - [facility] 5.9 (H) 02/25/2019 01:52 PM HEMOGLOBIN A1C - [facility] 5.7 02/07/2015 10:39 AM Patient Active Problem List Diagnosis Mitral valve prolapse Acquired hypothyroidism Prediabetes Hyperlipidemia with target LDL less than 100 HTN, goal below 140/90 Gastroesophageal reflux disease without esophagitis Chronic kidney disease, stage 3a (HCC) Paroxysmal SVT (supraventricular tachycardia) (HCC) Current moderate episode of major depressive disorder without prior episode (HCC) Persistent insomnia Overweight (BMI 25.0-29.9) Current Outpatient Medications Medication Sig Dispense Refill ASPIRIN EC LOW STRENGTH 81 MG PO TBEC take one tablet daily 34 11 B Complex Vitamins (VITAMIN B COMPLEX) Tablet Take 1 Tablet by mouth daily at noon. Cholecalciferol (VITAMIN D-3) 25 MCG (1000 UT) Capsule Take 1 Capsule by mouth in the morning. Calcium Carb-Cholecalciferol 600-800 MG-UNIT Oral Tablet Take 1 Tablet by mouth daily at noon. Multiple Vitamins-Minerals (CENTRUM SILVER ULTRA WOMENS) Tablet Take 1 Tablet by mouth daily at noon. Zolpidem Tartrate 5 MG Oral Tablet (Ambien) once nightly as needed 30 Tab 1 Atenolol 25 MG Oral Tablet (Tenormin) TAKE 1 TABLET BY MOUTH DAILY 90 Tablet 3 Omeprazole 20 MG Oral Capsule Delayed Release (PriLOSEC) TAKE 1 CAPSULE BY MOUTH DAILY 90 Capsule 1 Rosuvastatin Calcium 10 MG Oral Tablet (Crestor) Take 1 Tablet by mouth in the morning. 90 Tablet 3 amLODIPine Besylate 2.5 MG Oral Tablet (Norvasc) Take 0.5 Tablets by mouth in the morning. Levothyroxine Sodium 75 MCG Oral Tablet (Levoxyl) TAKE 1 TABLET BY MOUTH DAILY AT LEAST 30 MINUTES PRIOR TO BREAKFAST OR OTHER MEDS FRIDAY TO FRIDAY, AND SKIP ON SUNDAYS 78 Tablet 1 Escitalopram Oxalate 5 MG Oral Tablet (Lexapro) Take 1 Tablet by mouth in the morning. (Patient nottaking: Reported on 01/23/2024) 30 Tablet 3 Paxlovid (300/100) 20 x 150 MG & 10 x 100MG Tablet Therapy Pack TAKE 2 TABLETS (NIRMATRELVIR) AND TAKE 1 TABLET (RITONAVIR) BY MOUTH TWICE A DAY FOR 5 DAYS (Patient not taking: Reported on 01/23/2024) predniSONE 20 MG Oral Tablet (Deltasone) TAKE 3 TABLETS BY MOUTH ONCE DAILY FOR 4 DAYS (Patient nottaking: Reported on 01/23/2024) No current facility-administered medications for this visit. Review of patient's allergies indicates: Allergen Reactions No Known Drug Allergy Pollen OBJECTIVE: BP 122/68 | Pulse 53 | Temp 36.3 C (97.3 F) (Tympanic) | Wt 64.9 kg (143 lb) | SpO2 97% | BMI 27.70 kg/m | BSA 1.66 m PHYSICAL EXAM: General: alert, healthy, no distress, well nourished and well developed Ears: External ears normal, Canals clear, TM's Normal Nose: mild mucosal edema, no purulent discharge, no mucosal erythema, no sinus tenderness Oropharynx: no exudate, no erythema Neck: supple, no adenopathy Heart: regular Rhythm and rate, no murmurs Lungs: lungs clear to auscultation ASSESSMENT/PLAN: COVID-19 virus infection (Primary) - BASIC METABOLIC PANEL; Future; Expected date: 01/23/2024 - predniSONE 20 MG Oral Tablet (Deltasone); Take 1 Tablet by mouth in the morning. X 3 day and finish rx. Headache, unspecified headache type - BASIC METABOLIC PANEL; Future; Expected date: 01/23/2024 - predniSONE 20 MG Oral Tablet (Deltasone); Take 1 Tablet by mouth in the morning. X 3 day and finish rx. Hyponatremia - BASIC METABOLIC PANEL; Future; Expected date: 01/23/2024 Shakiness --advised to finish the Paxlovid. Change prednisone to 1 daily for 3 days from tomorrow. Continue increase intake of fluids. Tylenol 500 mg 1-2 tab q12 hrs prn For CHIN Follow Up: Return if symptoms worsen or fail to improve. (This note was completed using the dictation program Fluency Direct. As such, there may be misspellings, word substitutions, or other variations that should not change the essence of the clinical content of this encounter note. If there is need for further clarification, please direct questions to the provider listed above.) Patient and / caregiver verbalize understanding of above instructions and agrees with plan of care. Herminia Altamirano MD 01/23/2024 documented in this encounter Nursing Notes * Sonali Orantes, MED ASSIST - 01/23/2024 2:19 PM EDT Chief Complaint Patient presents with Acute Patient c/o shakiness, bad headaches, overall not feeling well post COVID. Patient was given courseof Paxlovid and prednisone at hospital on Friday and has 2.5 doses of Paxlovid left and one dose ofprednisone left. Originally tested positive on Friday. documented in this encounter Plan of Treatment Upcoming Encounters Date Type Department Care Team (Late st Contact Info) Description 06/22/2024 3:40 PM EST Office Visit General Internal Medicine [facility] [address] [place] [phone] Melissa Gunn MD [address] [place] [address] [place] [address] 08/26/2024 1:00 PM EDT Nurse Only Ancillary [facility] [address] [place] [address] [place], Nurse Annual Wellness [address] [place] [address] 11/05/2024 12:45 PM EDT Office Visit Dermatology [facility] [address] [place] [address] William Rios MD [address] [place] [address] [place] [address] Scheduled Orders Name Type Priority Associated Diagnoses Orde r Schedule BASIC METABOLIC PANEL Lab STAT COVID-19 virus infection Headache, unspecified headache type Hyponatremia Expected: 01/23/2024 (Approximate), Expires: 01/22/2025 Health Maintenance Due Date Last Done Comments COVID-19 Vaccine ( season) 2024 03/02/2021, 08/01/2020, 07/11/2020 Influenza Vaccine (FLU shot) (#1) 2024 05/14/2023, 02/11/2022, 01/25/2021, Additional history exists Adult Wellness Visit 08/18/2024 08/19/2023, 09/06/2021, 09/05/2020 Depression Monitoring 08/18/2024 08/19/2023 Albumin/Creatinine Ratio 10/28/2024 024, 06/12/2022, 08/06/2021, Additional history exists CKD HGB USE SMARTSET 62816 10/28/202410/28, 10/29/2023, 05/30/2022, Additional history exists CKD PHOS USE SMARTSET 68211 10/28/202410/10, 08/06/2021, 12/23/2016, Additional history exists HbA1c 10/28/2024 10/29/2023, 05/2022, 08/06/2021, Additional history exists TSH 10/28/2024 [...] this encounter Medical Devices Implanted Type Area Behavioral Health Director Device Identifier Shelf Expiration Date Model / Serial / Lot Lens Intraoc 19.0 - [id number] - [id number] Implanted:Qty: 1 on 11/04/2019 by Austin Cordero MD at [facility] Left: Eye BAUSCH [employer] LOMB 04/10/2024 [id number] / [id number] / [id number] Lens Intraoc 16.0 - [id number] - [id number] Implanted:Qty: 1 on 11/16/2019 by Austin Cordero MD at [facility] Right: Eye BAUSCH & LOMB 04/10/2024 [id number] / [id number] / [id number] documented as of this encounter Visit Diagnoses Diagnosis COVID-19 virus infection- Primary Headache, unspecified headache type Hyponatremia Hyposmolality and/or hyponatremia Shakiness Abnormal involuntary movements documented in this encounter Care Teams Inspector Golf Ball Relationship Specialty Start Date End Date Melissa Gunn MD [address] [place] [address], [place] [address] PCP - General Internal Medicine 06/02/15 documented as of this encounter"
--- OUTSIDE RECORDS SUMMARY | 2024-01-29 07:55 | External Medical Summary | Summary of Care ---
Author Name Unknown Organization [facility] Address [address] [place] [address] Phone [phone] Care Team Providers Care Scrub Tech Name Role Phone Melissa Gunn MD Primary Care Provider + Reason for Visit * Reason Onset Date Comments MyCode Nonconsent - Not interested at this time 01/23/2024 Encounter Details Date Type Department Care Team (Late st Contact Info) Description 01/23/2024 Orders Only Outcomes Research Department [address] [place], [place] [address] Shannan, Mykala, CHRA MyCode Nonconsent Documentation Allergies Active Allergy Reactions Criticality Noted Date Comments No Known Drug Allergy 04/05/2002 Pollen 09/05/2020 documented as of this encounter (statuses as of 01/23/2024) Medications Medication Sig Dispensed Refills Start Date End Date Status ASPIRIN EC LOW STRENGTH 81 MG PO TBECIndications:Palpi tations,Mitral valve prolapse take one tablet daily 34 [...] 10/10/2020 Active Atenolol 25 MG Oral Tablet (Tenormin)Indications :Palpitations TAKE 1 TABLET BY MOUTH DAILY 90 Tablet 3 04/29/2023 Active Omeprazole 20 MG Oral Capsule Delayed Release (PriLOSEC)Indications :GERD (gastroesophageal reflux disease) TAKE 1 CAPSULE BY MOUTH DAILY 90 Capsule 1 05/06/2023 Active Rosuvastatin Calcium 10 MG Oral Tablet (Crestor)Indications: Mixed dyslipidemia Take 1 Tablet by mouth in the morning. 90 Tablet 3 05/14/2023 Active amLODIPine Besylate 2.5 MG Oral Tablet (Norvasc)Indications: HTN, goal below 130/80,Palpitations Take 0.5 Tablets by mouth in the morning. 07/09/2023 Active Levothyroxine Sodium 75 MCG Oral Tablet (Levoxyl)Indications: Acquired hypothyroidism TAKE 1 TABLET BY MOUTH DAILY AT LEAST 30 MINUTES PRIOR TO BREAKFAST OR OTHER MEDS FRIDAY TO FRIDAY, AND SKIP ON SUNDAYS 78 Tablet 1 09/26/2023 Active Escitalopram Oxalate 5 MG Oral Tablet (Lexapro) Take 1 Tablet by mouth in the morning. 30 Tablet 3 01/13/2024 Active documented as of this encounter (statuses [...] mRNA, LNP-s, No Pre serve, 2-Dose Series (Pfizer) 03/02/2021,08/01/2020,07/11/2020 Diptheria/Tetanus Adult (TD) 08/29/2009 Pneumococcal Conjugate [...] on file documented as of this encounter Progress Notes * Bogdan Campbell CHRA - 01/23/2024 2:03 PM EDT MyCode Nonconsent Documentation Yariel Velez was approached in the clinic regarding participation in the MyCode Project and did not consent. documented in this encounter Plan of Treatment Upcoming Encounters Date Type Department Care Team (Late st Contact Info) Description 06/22/2024 3:40 PM EST Office Visit General Internal Medicine [facility] [place] [address] [place] [address] Melissa Gunn MD [address] [place] [address] 08/26/2024 1:00 PM EDT Nurse Only Ancillary [facility] [place] [address] [place] [address] [address] [place], Nurse Annual Wellness [facility] [address] [place] [address] [address] 11/05/2024 12:45 PM EDT Office Visit Dermatology [facility] [place] [address] [place] [address] [address] William Rios MD [address] [place] [address] Health Maintenance Due Date Last Done Comments COVID-19 Vaccine ( season) 2024 03/02/2021, 08/01/2020, 07/11/2020 Influenza Vaccine (FLU shot) (#1) 2024 05/14/2023, 02/11/2022, 01/25/2021, Additional history exists Adult Wellness Visit 08/18/2024 08/19/2023, 09/06/2021, 09/05/2020 Depression Monitoring 08/18/2024 08/19/2023 Albumin/Creatinine Ratio 10/28/2024 024, 06/12/2022, 08/06/2021, Additional history exists CKD HGB USE SMARTSET 29689 10/28/202410/28, 10/29/2023, 05/30/2022, Additional history exists CKD PHOS USE SMARTSET 17436 10/28/202410/10, 08/06/2021, 12/23/2016, Additional history exists HbA1c [...] this encounter Medical Devices Implanted Type Area Drying Room Supervisor Device Identifier Shelf Expiration Date Model / Serial / Lot Lens Intraoc 19.0 - [id number] - [id number] Implanted:Qty: 1 on 11/04/2019 by Austin Cordero MD at OR [facility] Left: Eye BAUSCH [employer] LOMB 04/10/2024 [id number] / [id number] / [id number] Lens Intraoc 16.0 - [id number] - [id number] Implanted:Qty: 1 on 11/16/2019 by Austin Cordero MD at OR [facility] Right: Eye BAUSCH [employer] LOMB 04/10/2024 [id number] / [id number] / [id number] documented as of this encounter Care Teams Scrub Tech Relationship Specialty Start Date End Date Melissa Gunn MD [address] [place] [address] PCP - General Internal Medicine 06/02/15 documented as of this encounter
--- OUTSIDE RECORDS SUMMARY | 2024-01-29 07:55 | External Medical Summary | Summary of Care ---
Author Name Unknown Organization [facility] Address [address] [place] [address] Phone [phone] Care Team Providers Care Catering Driver Name Role Phone Mahesh Gunn MD Primary Care Provider + Reason for Visit * Reason Onset Date Comments Medication Refill 01/26/2024 Encounter Details Date Type Department Care Team (Late st Contact Info) Description 01/26/2024 Refill General Internal Medicine [facility] [place] [address] [place] [address] Mahesh Gunn MD [address] [place] [address] Acquired hypothyroidism Allergies Active Allergy Reactions Criticality Noted Date Comments No Known Drug Allergy 04/05/2002 Pollen 09/05/2020 documented as of this encounter (statuses as of 01/26/2024) Medications Medication Sig Dispensed Refills Start Date [...] 10/10/2020 Active Atenolol 25 MG Oral Tablet (Tenormin)Indicatio [...] 01/18/2024 Active predniSONE 20 MG Oral Tablet (Deltasone)Indicati [...] SKIP ON SUNDAYS 7 Tablet 01/26/2024 Active Levothyroxine Sodium 75 MCG Oral Tablet (Levoxyl)Indication s:Acquired hypothyroidism TAKE 1 TABLET BY MOUTH DAILY AT LEAST 30 MINUTES PRIOR TO BREAKFAST OR OTHER MEDS FRIDAY TO FRIDAY, AND SKIP ON SUNDAYS 78 Tablet 1 09/26/2023 4 Discontinu ed(Refill) documented as of this encounter (statuses as of 01/26/2024) Active Problems Problem Noted Date Diagnosed Date [...] as of this encounter (statuses as of 01/26/2024) Resolved Problems Problem Noted Date Diagnosed Date [...] as of this encounter (statuses as of 01/26/2024) Immunizations Name Administration Dates Next Due COVID-19 mRNA, LNP-s, No Pre serve, 2-Dose Series ([employer]) 03/02/2021,08/01/2020,07/11/2020 Diptheria/Tetanus Adult (TD) 08/29/2009 Pneumococcal Conjugate [...] No 08/19/2023 Does the household have a dzilth-[facility]-dith-hle health centerlar source of income? (Household - for ages [...] on file documented as of this encounter Miscellaneous Notes * Telephone Encounter - Mahesh Gunn MD - 01/26/2024 2:54 PM EDTSigned Prescriptions: Disp Refills Levothyroxine Sodium 75 MCG Oral Tablet (L*7 Tabl*0 Sig: TAKE 1 TABLET BY MOUTH DAILY AT LEAST 30 MINUTES PRIOR TO BREAKFAST OR OTHER MEDS FRIDAY TO FRIDAY, AND SKIP ON SUNDAYS Authorizing Provider: MAHESH GUNN * Telephone Encounter - Katina Alegre LPN - 01/26/2024 11:34 AM EDT Patient calling in stating that she forgot to call in her script for her Levothyroxine to the mail order pharmacy until today and she is completely out of her medication. She needs a short supply to go to the local [facility]. Pended for approval. documented in this encounter Plan of Treatment Upcoming Encounters Date Type Department Care Team (Late st Contact Info) Description 06/22/2024 3:40 PM EST Office Visit General Internal Medicine [facility] [address], [place] [address] Mahesh Gunn MD [address] [place], [place] [address] 08/26/2024 1:00 PM EDT Nurse Only Ancillary [facility] Shelli Fong [address] [place] [address] [place], Nurse Annual Wellness [place] [address] [place] [address] 11/05/2024 12:45 PM EDT Office Visit Dermatology [facility] Shelli Fong [address] [place] [address] William Rios MD [address] [place] [address] [address] Health Maintenance Due Date Last Done Comments COVID-19 Vaccine ( season) 2024 03/02/2021, 08/01/2020, 07/11/2020 Influenza Vaccine (FLU shot) (#1) 2024 05/14/2023, 02/11/2022, 01/25/2021, Additional history exists Adult Wellness Visit 08/18/2024 08/19/2023, 09/06/2021, 09/05/2020 Depression Monitoring 08/18/2024 08/19/2023 Albumin/Creatinine Ratio 10/28/2024 024, 06/12/2022, 08/06/2021, Additional history exists CKD HGB USE SMARTSET 58086 10/28/202410/28, 10/29/2023, 05/30/2022, Additional history exists CKD PHOS USE SMARTSET 74161 10/28/202410/10, 08/06/2021, 12/23/2016, Additional history exists HbA1c [...] this encounter Medical Devices Implanted Type Area Lumber Carrier Device Identifier Shelf Expiration Date Model / Serial / Lot Lens Intraoc 19.0 - [id number] - [id number] Implanted:Qty: 1 on 11/04/2019 by Austin Cordero MD at OR [facility] Left: Eye BAUSCH [employer] LOMB 04/10/2024 [id number] / [id number] / [id number] Lens Intraoc 16.0 - [id number] - [id number] Implanted:Qty: 1 on 11/16/2019 by Austin Cordero MD at OR [facility] Right: Eye BAUSCH & LOMB 04/10/2024 [id number] / [id number] / [id number] documented as of this encounter Visit Diagnoses Diagnosis Acquired hypothyroidism Unspecified hypothyroidism documented in this encounter Care Teams Catering Driver Relationship Specialty Start Date End Date Mahesh Gunn MD [address] [place] [address] PCP - General Internal Medicine 06/02/15 documented as of this encounter
[2024-01-29] MEDS: amLODIPine BESYLATE 5 MG TAB PO SCH (08:33)
[2024-01-29] MEDS: ASPIRIN 81 MG ECTAB PO SCH (08:34)
[2024-01-29] MEDS: ATENOLOL 25 MG TABLET PO SCH (08:34)
[2024-01-29] MEDS: CHOLECALCIFEROL 25 MCG (1000 UNITS) TAB PO SCH (08:34)
[2024-01-29] MEDS: ROSUVASTATIN CALCIUM 10 MG TAB PO SCH (08:35)
[2024-01-29] MEDS: PANTOprazole 40 MG TAB PO SCH (08:35)
[2024-01-29] MEDS: ESCITALOPRAM OXALATE 10 MG TAB PO SCH (08:35)
[2024-01-29] MEDS: VITAMIN B COMPLEX TAB PO SCH (08:35)
--- NOTE | 2024-01-29 12:39 | Hospitalist Progress Note ---
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 Patient is outside the need for isolation for COVID, can discontinue isolation precautions Reassured patient that her stamina will improve with time. Nursing reports that patient was not taking Lexapro this may help with her anxiety she did take it this morning. As needed Xanax Patient's laboratory studies did show some evidence of some mild dehydration, continue IV fluids recheck labs in the morning Informed patient that anticipate discharge tomorrow Admission and Anticipated Discharge Date Admission Date: January 28, 2024 Subjective Patient extremely anxious about her condition. Denies shortness of breath. Biggest complaint was that she just is fatigued he cannot do all of her activities that she usually does at home Physical Exam Physical Exam: Constitutional: Alert, nontoxic, no acute distress HEENT: Mucous membranes moist. Lungs: Clear to auscultation, decreased, no wheezes rales or rhonchi CV: S1-S2, regular Abdomen: Soft, nontender, nondistended Extremities: No significant edema Neuro: No focal deficits Psych: Cooperative, anxious Results & Data Results & Data Vital Signs (Past 12 Hours) Vital Signs Temp Pulse Resp BP Pulse Ox O2 Del Method 01/29/24 08:37 36.6 C 88 16 104/68 95 Room Air Laboratory Results Reviewed imaging, laboratory and diagnostic studies. Pertinent findings as below.
[2024-01-29 20:38] VITALS: TEMP 98.2
[2024-01-29] MEDS: ALPRAZolam 0.25 MG TABLET PO PRN (21:03)
[2024-01-30 06:40] LABS: Hematocrit (blood only) 43.7 % (37.0-47.0); Hemoglobin 14.7 g/dl (12.0-16.0); Mean Corpuscular Hemoglobin 28.4 pg (25.0-34.0); Mean Corpuscular Hgb Conc 33.6 g/dL (32.0-36.0); Mean Corpuscular Volume 84.4 fL (80.0-100.0); Mean Platelet Volume 8.6 fL (9.4-12.4); Platelet Count 289 K/uL (130-400); RDW Coefficient of Variation 14.6 % (11.5-14.5); RDW Standard Deviation 44.4 fL (36.4-46.3); Red Blood Count 5.18 M/uL (4.20-5.40); White Blood Count 7.54 K/ul (4.8-10.8)
[2024-01-30 06:41] LABS: BUN Creatinine Ratio 13.6 (10-20); Calcium 8.2 mg/dl (8.6-10.3); Creatinine Clr Calc Pharmacy 37.6 ml/min; Est GFR (Non-African American) 58.7 ml/min; Potassium 4.3 mmol/L (3.5-5.1)
[2024-01-30 07:54] VITALS: BP 124/73; PULSE 62; O2SAT 96
--- NOTE | 2024-01-30 10:00 | Discharge Summary ---
Discharge Summary Date of Service January 30, 2024 Principal Dx & Hospital Course #1 = Principal Diagnosis (1) Postviral fatigue syndrome: Post COVID (2) Generalized anxiety disorder: (3) TEREZA (acute kidney injury): (4) Acute dehydration: Plan Patient presented to the emergency room with fatigue and weakness after recently suffering from a COVID-19 infection. In the emergency room had some mild acute kidney injury and evidence of dehydration. Patient was cared for in the hospital. She was given some IV fluid resuscitation. By the following day she had some significant improvement of her symptoms. Additional history was realized that she just really was frustrated and very anxious that she could not do her usual activities. She is someone who is usually very busy and active and she just felt as though she was more fatigued than she should be with her usual activities. This made her extremely anxious. Reassured her that it is not unusual to take a few weeks to recover from a COVID infection and may take some time for her to get back her usual stamina. She was given some IV hydration. Given some Xanax to address her immediate anxiety. Is also learned that she had not yet started her Lexapro had been prescribed for her at home. It was started here in the hospital and it was encouraged that she take that at home. On the day of discharge she is up and ambulatory feeling much better. Evidence of dehydration on her acute kidney injury is completely resolved. She feels much more confident returning home and understands it may take some time for her to get back to full force. She will follow-up with her PCP. Notes For Next Care Provider Medication Changes From Visit Encouraged to to start Lexapro as previously ordered Admission HPI Per Admitting Provider 88-year-old female with past medical history significant for hypothyroidism, prediabetes, hyperlipidemia, mitral valve prolapse, hypertension, paroxysmal SVT, GERD, CKD stage III, depression, persistent insomnia who lives alone and who was recently about 10 days ago diagnosed with COVID and completed Paxlovid and prednisone comes because of weakness. Patient was having poor appetite. And she is somewhat shaky and anxious. Because of anxiety patient says she is having some abdominal discomfort. She still has some cough and bringing up whitish phlegm. No fevers. No nausea. No chest pain. No shortness of breath. She had couple of loose bowels today. Stools were dark. Micturating okay. Has headache thinks because of dehydration. Vision is okay. No runny nose currently. No sore throat currently. Feeling weak and not ambulating much.H emodynamics are okay. Past medical history. As mentioned above. Past surgical history. Cholecystectomy. Colonoscopy and EGD. Ligation of the duct. Removal of ovarian cyst. Bilateral cataracts. Social history. No smoking. Alcohol 1 beer a month. No drug use. Family history. Mother had blood cancer. Admission Exam Per Admitting Provider See H&P Discharge Exam Constitutional: Alert HEENT: Mucous membranes moist. Lungs: Clear to auscultation, decreased, no wheezes rales or rhonchi CV: S1-S2, regular Abdomen: Soft, nontender, nondistended Extremities: No significant edema Neuro: No focal deficits Psych: Cooperative, normal mood Updated Medication List Medication Instructions Recorded Confirmed Type B Complex 1 tab PO DAILY 01/28/24 01/28/24 History amlodipine 2.5 mg tablet 2.5 mg PO DAILY 01/28/24 01/28/24 History aspirin 81 mg tablet,delayed 81 mg PO DAILY 01/28/24 01/28/24 History release atenolol 25 mg tablet 25 mg PO DAILY 01/28/24 01/28/24 History cholecalciferol (vitamin D3) 25 25 mcg PO DAILY 01/28/24 01/28/24 History mcg (1,000 unit) tablet (Vitamin D3) escitalopram oxalate 5 mg tablet 5 mg PO DAILY 01/28/24 01/28/24 History levothyroxine 75 mcg tablet 75 mcg PO DAILY 01/28/24 01/28/24 History omeprazole 20 mg capsule,delayed 20 mg PO DAILY 01/28/24 01/28/24 History release rosuvastatin 10 mg tablet 10 mg PO DAILY 01/28/24 01/28/24 History Hospital Stay Data Consultations 01/28/24 19:17 ED Decision to Admit Stat Diagnostic Imagining Performed Reviewed imaging, laboratory and diagnostic studies. Pertinent findings as below. Hemoglobin 14.7 Creatinine 0.88 Pending Results Patient Have Any Pending Studies at Discharge: No Discharge Instructions Given to Patient (Per Discharging Provider) Anticipate that it may take 1 to 2 weeks for you to feel back to full strength Total Time Total Time Spent Total Time Spent (In Minutes): 22
== END 2024-01-30 11:23 | disposition home or self-care (01) | DRG 683 ==
LOC: ED 15:38 → 3W 20:05